=== PATIENT | female | born 1990 | race Caucasian/White ===

== ENCOUNTER 2019-05-26 04:14 | Emergency (ER) | payer MEDICAID ==
[2019-05-26 04:42] VITALS: O2SAT 100
[2019-05-26] MEDS ORDERED: LACTATED RINGERS 1,000 ML ONE (04:44)
[2019-05-26] MEDS ORDERED: OXYTOCIN INJ 10 UNITS/ML VIAL ONE (04:44)
--- NOTE | 2019-05-26 04:51 | ED.PDOC ---
History of Present Illness - General Chief Complaint: [employer] Problem Stated Complaint: post delivery Time Seen by Provider: 05/26/19 04:34 Source: patient Exam Limitations: no limitations - History of Present Illness Initial Comments: 28 y/o female presents to the emergency department via EMS status post spontaneous vaginal delivery at home. She is unsure how far along she was she has not had any significant care she did see an [facility] and [facility] and was planning on returning back there to deliver. However, this morning on her friend's couch she went into labor. She is not sure exactly what time she delivered this morning. She reports that her last menstrual period was in August 2018. This is her eighth and her fifth live . She reports positive smoking but denies any alcohol or drug use. Per EMS the placenta spontaneously delivered but there is still part attached. Allergies/Adverse Reactions: Allergies Tetracycline Allergy (Verified 05/26/19 04:42) Home Medications: Ambulatory Orders NK 05/26/19 Review of Systems - Review of Systems Constitutional: Denies: chills, fever EENTM: Denies: nose congestion, throat pain Respiratory: Denies: cough, short of breath Cardiology: Denies: chest pain, palpitations Gastrointestinal/Abdominal: Denies: abdominal pain, nausea, vomiting Genitourinary: States: other - spontaneous vaginal delivery with no significant bleeding Musculoskeletal: Denies: back pain, muscle pain Neurological: Denies: headache, numbness, weakness Past Medical History (General) - Patient Medical History Hx Seizures: No Hx Stroke: No Hx Dementia: No Hx Asthma: No Hx of COPD: No Hx Cardiac Disorders: No Hx Congestive Heart Failure: No Hx Pacemaker: No Hx Hypertension: No Hx Thyroid Disease: No Hx Diabetes: No Hx Gastroesophageal Reflux: No Hx Renal Disease: No Hx Cancer: No Hx of HIV: No Hx Hepatitis C: No Hx MRSA: No Surgical History: no surgical history - Vaccination History Hx Tetanus, Diphtheria Vaccination: No Hx Influenza Vaccination: No Family Medical History - Family History Mother Family History: Unknown Physical Exam - Physical Exam General Appearance: Alert, Well Developed Eye Exam: bilateral normal Ears, Nose, Throat: normal ENT inspection, normal pharynx Neck: supple, normal inspection Respiratory: lungs clear, normal breath sounds, no respiratory distress Cardiovascular/Chest: regular rate, rhythm, no edema Peripheral Pulses: radial,right: 2+, radial,left: 2+, dorsalis pedis,right: 2+, dorsalis pedis,left: 2+ Gastrointestinal/Abdominal: other - gravid with fundal height 1/2 way between the umbilicus and pelvis. Fundus is firm. Comments: exam: There is minimal vaginal bleeding however there is a portion of the amniotic sac that is protruding from the vagina. Gentle traction was applied with ring forceps and resistance was encountered, so it was left in place. Vital Signs - 24 hr 05/26/19 04:14 Temperature 98.0 F Pulse Rate [ 86 monitor] Respiratory 18 Rate Blood Pressure 108/64 [Right Arm] O2 Sat by Pulse 100 Oximetry Progress - Progress Progress: 05/26/19 05:[address] Santiago the [employer] wagon driver salesperson and [facility] regarding the patient's case. She recommended starting Pitocin and transferring the patient and suspects that the remaining portion on the amniotic sac will be expelled by the time the patient gets there if not she will remove it. She did not recommend any antibiotics. She will accept the patient and transfer. 05/26/19 0510 Patient was updated on discussions with the OB with [facility] and plan for transfer to [facility]. She has voiced understanding and agrees. - Results/Orders Results/Orders: 05/26/19 04:37 COMPLETE METABOLIC PROFILE Stat URINE DRUG SCREEN, 7 ASSAY Stat RPR Stat HIV-1,2 ANTIBODY RAPID TEST Stat 05/26/19 04:58 HEPATITIS B SURFACE ANTIBODY Stat URINALYSIS Stat 05/26/19 05:00 Oxytocin Inj [Pitocin] 20 units Lactated Ringers [Lr] 1,000 ml IV Q8H 05/26/19 05:10 Telemetry ONCE Laboratory Results - last 24 hr 05/26/19 04:34 WBC 9.8 RBC 3.32 L Hgb 7.2 L* Hct 23.0 L MCV 69.4 L MCH 21.7 L MCHC 31.3 L RDW 18.6 H Plt Count 180 MPV 8.0 Absolute Neuts (auto) 8.50 H Absolute Lymphs (auto) 0.70 L Absolute Monos (auto) 0.50 Absolute Eos (auto) 0.00 Absolute Basos (auto) 0.10 Neutrophils % 86.0 H Lymphocytes % 7.5 L Monocytes % 5.4 Eosinophils % 0.3 L Basophils % 0.8 Vital Signs - 24 hr 05/26/19 05/26/19 05/26/19 04:14 04:30 04:45 Temperature 98.0 F Pulse Rate [ 86 85 87 monitor] Respiratory 18 16 16 Rate Blood Pressure 108/64 105/66 104/67 [Right Arm] O2 Sat by Pulse 100 100 100 Oximetry 05/26/19 05/26/19 05:00 05:15 Temperature Pulse Rate [ 89 83 monitor] Respiratory 16 16 Rate Blood Pressure 108/73 111/69 [Right Arm] O2 Sat by Pulse 100 100 Oximetry Departure - Departure Clinical Impression: (spontaneous vaginal delivery), Retained products of conception after delivery without hemorrhage Time of Disposition: 05:19 Disposition: Transfer to Hospital Condition: Good Home Medications: Ambulatory Orders NK 05/26/19 Transfer to Outside Facility - Transfer Information Decision to Transfer Date: 05/26/19 Decision to Transfer Time: 05:10 Reason for Transfer: specialized care not available Accepting Provider:: Dr. Santiago Accepting Facility: [address]
[2019-05-26] MEDS: LACTATED RINGERS IV SCH (04:58)
[2019-05-26] MEDS: OXYTOCIN IV SCH (04:58)
[2019-05-26 06:21] VITALS: BP 128/64; TEMP 98.4
== END 2019-05-26 06:30 | disposition short-term general hospital (02) ==
LOC: ER 04:14
DX: O73.1 Retained portions of placenta and membranes, without hemorrhage (principal); Z3A.00 Weeks of gestation of pregnancy not specified; Z37.9 Outcome of delivery, unspecified; F17.200 Nicotine dependence, unspecified, uncomplicated
CPT/HCPCS: 36415; 80053; 80307; 81001; 85025; 86592; 86703; 86706; J2590; J7120